=== PATIENT | male | born 1990 | race Two or more races ===

== ENCOUNTER 2017-02-16 08:31 | Emergency (ER) | payer MEDICAID, OTHER ==
[~2017-02-16] VITALS: Ht 182.9 cm; Wt 104.3 kg
[2017-02-16 08:34] VITALS: BP 174/98
[2017-02-16] MEDS ORDERED: IBUPROFEN 800 MG TAB PO ONE ×2 (09:42→09:45)
== END 2017-02-16 09:45 | disposition home or self-care (01) ==
LOC: ER 08:31
DX: S93.602A Unspecified sprain of left foot, initial encounter (principal); F17.210 Nicotine dependence, cigarettes, uncomplicated; W17.89XA Other fall from one level to another, initial encounter; Y93.39 Activity, other involving climbing, rappelling and jumping off; Y99.8 Other external cause status; Y92.89 Other specified places as the place of occurrence of the external cause
CPT/HCPCS: 73630

== ENCOUNTER 2017-03-02 17:54 | Emergency (ER) | payer MEDICAID ==
[~2017-03-02] VITALS: Ht 182.9 cm; Wt 90.7 kg
[2017-03-02 18:43] VITALS: BP 152/2
== END 2017-03-02 19:47 | disposition home or self-care (01) ==
LOC: ER 17:56
DX: M79.672 Pain in left foot (principal)

== ENCOUNTER 2017-11-10 21:58 | Emergency (ER) | payer MEDICAID ==
[~2017-11-10] VITALS: Ht 182.9 cm; Wt 113.4 kg
[2017-11-10 23:12] VITALS: BP 140/80
== END 2017-11-11 00:13 | disposition home or self-care (01) ==
LOC: ER 21:58
DX: S00.03XA Contusion of scalp, initial encounter (principal); M25.561 Pain in right knee; M62.838 Other muscle spasm; V43.52XA Car driver injured in collision with other type car in traffic accident, initial encounter; Y93.89 Activity, other specified; Y92.410 Unspecified street and highway as the place of occurrence of the external cause; Y99.8 Other external cause status
CPT/HCPCS: 70450; 73562

== ENCOUNTER → 2019-10-22 | Emergency (ER) | payer MEDICAID, OTHER ==
[~2019-10-22] VITALS: Ht 182.9 cm; Wt 92.8 kg
[2019-10-22 13:37] VITALS: BP 134/84
== END | disposition home or self-care (01) ==
LOC: ER 13:18
DX: S31.135A Puncture wound of abdominal wall without foreign body, periumbilic region without penetration into peritoneal cavity, initial encounter (principal); X58.XXXA Exposure to other specified factors, initial encounter; Y93.89 Activity, other specified; Y92.89 Other specified places as the place of occurrence of the external cause; Y99.8 Other external cause status
CPT/HCPCS: 74176

== ENCOUNTER 2022-03-18 03:30 | Emergency (ER) | payer OTHER ==
[~2022-03-18] VITALS: Ht 182.9 cm; Wt 90.0 kg
[2022-03-18] MEDS ORDERED: NALOXONE HCL 0.4 MG/ML VIAL ONE ×2 (03:45→03:58)
[2022-03-18] MEDS ORDERED: NALOXONE HCL 1MG/ML 2ML SYRINGE IV ONE ×2 (04:00→04:30)
[2022-03-18] MEDS ORDERED: ONDANSETRON HCL 4 MG/2 ML VIAL IV ONE (04:00)
[2022-03-18 04:36] LABS: Basophils # (auto) 0.1 10 ^3/uL (0-0.2); Basophils % (auto) 0.3 % (0.0-2.0); Eosinophils # (auto) 0.2 10 ^3/uL (0-0.8); Eosinophils % (auto) 1.1 % (0.0-7.0); Hematocrit 44.8 % (41.0-53.0); Lymphocytes % (auto) 12.8 % (10.0-50.0); Mean Corpuscular Hemoglobin 29.9 pg (28.0-32.0); Mean Corpuscular Hgb Conc. 33.5 g/dL (32.0-36.0); Mean Corpuscular Volume 89.3 fL (80.0-100.0); Monocytes % (auto) 6.3 % (0.0-12.0); Neutrophils # (auto) 12.3 10 ^3/uL (1.6-8.6); Neutrophils % (auto) 79.5 % (37.0-80.0); Nucleated Red Blood Cells % 0.1 %; Red Blood Cells 5.02 10^6/uL (4.5-5.90); Red Cell Distribution Width 13.5 % (11.8-14.3); White Blood Cell 15.5 10^3/uL (4.4-10.8)
[2022-03-18 04:50] LABS: Chloride 106 mmol/L (98-107); Potassium 3.6 mmol/L (3.5-5.1); Sodium 143 mmol/L (136-145)
[2022-03-18 05:01] LABS: Alanine Aminotransferase 145 U/L (16-61); Albumin 4.1 g/dL (3.4-5.0); Alkaline Phosphatase 82 U/L (45-117); Anion Gap 6 (5-15); Aspartate Aminotransferase 212 U/L (15-37); BUN/Creatinine Ratio 12.7; Bilirubin, Total 0.4 mg/dL (0.2-1.0); Blood Alcohol < 3.0 mg/dL (0-5); Blood Urea Nitrogen 14 mg/dL (7-18); Calcium 8.9 mg/dL (8.5-10.1); Carbon Dioxide 31 mmol/L (21-32); GFR African American 101 mL/min; GFR Non-African American 84 mL/min; Glucose 97 mg/dL (74-106); Total Protein 7.5 g/dL (6.4-8.2)
[2022-03-18 06:20] VITALS: BP 130/87
== END 2022-03-18 06:12 | disposition home or self-care (01) ==
LOC: EDBD 03:30 → ER 03:32
DX: T40.2X1A Poisoning by other opioids, accidental (unintentional), initial encounter (principal); F17.210 Nicotine dependence, cigarettes, uncomplicated; F12.10 Cannabis abuse, uncomplicated; Z90.49 Acquired absence of other specified parts of digestive tract; Y92.89 Other specified places as the place of occurrence of the external cause
CPT/HCPCS: 36415; 80053; 80320; 85025; 93005; 96374; 96375; 99284; J2310; J2405

== ENCOUNTER 2024-07-17 03:13 | Emergency (ER) | payer OTHER ==
[~2024-07-17] VITALS: Ht 190.5 cm; Wt 90.7 kg
[~2024-07-17 03:13] MED LIST: ZOFR4T PO
[2024-07-17 03:22] VITALS: BP 165/70; PULSE 92; RESP 16; O2SAT 95
--- NOTE | 2024-07-17 03:44 | ED.PDOC ---
History of Present Illness HPI Comments 34 year old male brought in by EMS presents to the ED with a chief complaint of overdose onset today. Per EMS, patient was found on the ground, O2 sat was 70%, patient was bagged for a few minutes, 2 mg Narcan IM was given, 2 mg Narcan IV. Patient is currently A&O x4. He states he smoked Fentanyl a few hours ago. Patient denies any PMHx. No other symptoms or modifying factors present at this time. Chief Complaint: Overdose Time Seen by MD: 03:23 Reviewed Notes: Medications, Allergies Allergies: Coded Allergies: NO KNOWN ALLERGIES (Unverified , 07/17/24) Information Source: Patient, Emergency Med Personnel Mode of Arrival: EMS Severity: Moderate Timing: Hours Duration: Since onset Prehospital treatment: Other (Narcan) Vital Signs Vital Signs Date Time Temp Pulse Resp B/P (MAP) Pulse Ox O2 Delivery O2 Flow Rate FiO2 07/17/24 03:22 97.8 92 16 165/70 (101) 95 Physical Exam General: Patient is sleeping, easily aroused. Appears disheveled Skin: Skin in warm, dry and intact. Appropriate color for ethnicity. HEENT: The head is normocephalic and atraumatic. Conjunctivae injected bilaterally. Sclera is non-icteric. EOM are intact. No signs of nystagmus. Eyelids are normal in appearance without swelling or lesions. Oral mucosa is pink and moist Neck: The neck is supple with normal range of motion. No JVD. Cardiac: Heart rate and rhythm are normal. No murmurs, gallops, or rubs are auscultated. Respiratory: No signs of respiratory distress. Lung sounds are clear in all lobes bilaterally without rales, ronchi, or wheezes. Abdominal: Abdomen is soft, non-tender without distention. Bowel sounds are present and normoactive in all four quadrants. Extremities: Upper and lower extremities are atraumatic in appearance without deformity or edema. Neurological: The patient is awake, alert and oriented to person, place, and time with normal speech. Speech is clear. There is no facial asymmetry. He is moving all extremities spontaneously and following commands. Psychiatric: Withdrawn affect Review of Systems: REVIEW OF SYSTEMS: No fever, no chills, or fatigue HEENT: No sore throat, no earache, no congestion, no neck pain. Cardiac: No chest pain. No palpitations. Lungs: No shortness of breath, no cough. GI: No nausea, no vomiting, no diarrhea, no constipation, no abdominal pain : No dysuria, frequency, or urgency. No hematuria. Musculoskeletal: No joint pain , no joint swelling, no extremity edema. Skin: No rash, no itching. Neuro: No headache, no dizziness, no weakness Past Medical History PAST MEDICAL HISTORY: Unknown Surgical History: Unobtainable Family History Family History: Unknown Social History Smoker: Unknown Alcohol: Unknown Drugs: Other Lives In: Homeless Was a procedure done? Was a procedure done?: No Differential Dx Considerations may include: Continued opiate overdose, respiratory distress, respiratory arrest, pulmonary edema, acute coronary syndrome, other X-Ray, Labs, Meds, VS Vital Signs Date Time Temp Pulse Resp B/P (MAP) Pulse Ox O2 Delivery O2 Flow Rate FiO2 07/17/24 03:22 97.8 92 16 165/70 (101) 95 07/17/24 03:19 88 Lab Test 07/17/24 04:21 Range/Units White Blood Count 12.7 H 4.4-10.8 10^3/uL Red Blood Count 4.99 4.5-5.90 10^6/uL Hemoglobin 14.9 13.5-17.5 g/dL Hematocrit 44.4 41.0-53.0 % Mean Corpuscular Volume 88.9 80.0-100.0 fL Mean Corpuscular Hemoglobin 29.8 28.0-32.0 pg Mean Corpuscular Hemoglobin Concent 33.5 32.0-36.0 g/dL Red Cell Distribution Width 12.8 11.8-14.3 % Platelet Count 296 140-450 10^3/uL Mean Platelet Volume 6.8 L 6.9-10.8 fL Neutrophils (%) (Auto) 76.3 37.0-80.0 % Lymphocytes (%) (Auto) 13.9 10.0-50.0 % Monocytes (%) (Auto) 7.1 0.0-12.0 % Eosinophils (%) (Auto) 2.4 0.0-7.0 % Basophils (%) (Auto) 0.3 0.0-2.0 % Neutrophils # (Auto) 9.7 H 1.6-8.6 10 ^3/uL Lymphocytes # (Auto) 1.8 0.4-5.4 10 ^3/uL Monocytes # (Auto) 0.9 0-1.3 10 ^3/uL Eosinophils # (Auto) 0.3 0-0.8 10 ^3/uL Basophils # (Auto) 0 0-0.2 10 ^3/uL Nucleated Red Blood Cells 0.0 % Sodium Level 140 136-145 mmol/L Potassium Level 4.1 3.5-5.1 mmol/L Chloride Level 105 98-107 mmol/L Carbon Dioxide Level 28 20-31 mmol/L Anion Gap 7 5-15 Blood Urea Nitrogen 17 9-23 mg/dL Creatinine 1.07 0.700-1.30 mg/dL Glomerular Filtration Rate Calc 94 >90 mL/min BUN/Creatinine Ratio 15.9 10.0-20.0 Serum Glucose 84 74-106 mg/dL Calcium Level 10.0 8.7-10.4 mg/dL Total Bilirubin 0.3 0.2-1.0 mg/dL Aspartate Amino Transferase (AST) 72 H 13-40 U/L Alanine Aminotransferase (ALT) 45 H 7-40 U/L Alkaline Phosphatase 84 46-116 U/L Troponin I High Sensitivity 5 </=54 ng/L Total Protein 7.5 5.7-8.2 g/dL Albumin 4.7 3.2-4.8 g/dL Plasma/Serum Blood Alcohol 7.2 <10 mg/dL Time of 1ST Reevaluation: 03:53 Reevaluation 1ST: Unchanged Patient Education/Counseling: Diagnosis, Treatment, Prognosis Family Education/Counseling: No Family Present Additional Information The following tests were ordered, and results were reviewed by me: EKG, CBC, CMP, DRUG SCREEN, UA, XY CHEST, BLOOD ALCOHOL, TROP Additional Information was gathered from interviewing the following independent historians: EMS I reviewed and agreed with the following test results read by other providers: XY CHEST I discussed treatment and results with medical personnel and patient Departure 1 Departure Time of Disposition: 05:26 Impression: Primary Impression: Opiate overdose Additional Impression: Left against medical advice Disposition: 07 LEFT AGAINST MEDICAL ADVICE Condition: Stable Comments 34-year-old male presents to the emergency department after opiate overdose. Was given Narcan by EMS. He was awake, alert, oriented on arrival to the [facility]. Recommended continued ED observation. No respiratory distress Despite our efforts, patient has decided to leave against medical advice. The patient has a normal mental status and full decisional capacity. Patient has been informed of the benefits of staying such as further diagnosis and treatment of possible serious etiology of the symptoms, and the risks of leaving such as , chronic pain, permanent disability or other serious adverse events which might be attributed to leaving. The patient displays clear understanding of these benefits and risks and chooses to leave. The patient is been informed also that they may return here at any time if they change their mind or need to further concerns or questions has been referred to their local medical physician for follow up NOHEMY. Critical Care Note Critical Care Time?: No Stability Stability form required: No I personally scribed for LIN CASILLAS MD ([email or web address]) on 07/17/24 at 03:44. Electronically submitted by Petrona Garcia ([email or web address]). I personally scribed for LIN CASILLAS MD ([email or web address]) on 07/17/24 at 03:44. Electronically submitted by Petrona Garcia ([email or web address]). I personally scribed for LIN CASILLAS MD ([email or web address]) on 07/17/24 at 04:17. Electronically submitted by Petrona Garcia ([email or web address]). LIN CASILLAS MD Jul 17, 2024 03:44
[2024-07-17] MEDS ORDERED: NALOXONE HCL 0.4 MG/ML VIAL IV ONE (04:00)
[2024-07-17 04:50] LABS: Albumin 4.7 g/dL (3.2-4.8); Alkaline Phosphatase 84 U/L (46-116); Anion Gap 7 (5-15); BUN/Creatinine Ratio 15.9 (10.0-20.0); Blood Alcohol 7.2 mg/dL (<10); Blood Urea Nitrogen 17 mg/dL (9-23); Carbon Dioxide 28 mmol/L (20-31); Chloride 105 mmol/L (98-107); Glucose 84 mg/dL (74-106); Potassium 4.1 mmol/L (3.5-5.1); Sodium 140 mmol/L (136-145)
[2024-07-17 04:51] LABS: Bilirubin, Total 0.3 mg/dL (0.2-1.0); Total Protein 7.5 g/dL (5.7-8.2)
[2024-07-17 04:56] LABS: Basophils # (auto) 0 10 ^3/uL (0-0.2); Basophils % (auto) 0.3 % (0.0-2.0); Eosinophils # (auto) 0.3 10 ^3/uL (0-0.8); Eosinophils % (auto) 2.4 % (0.0-7.0); Hematocrit 44.4 % (41.0-53.0); Hemoglobin 14.9 g/dL (13.5-17.5); Lymphocytes # (auto) 1.8 10 ^3/uL (0.4-5.4); Lymphocytes % (auto) 13.9 % (10.0-50.0); Mean Corpuscular Hemoglobin 29.8 pg (28.0-32.0); Mean Corpuscular Hgb Conc. 33.5 g/dL (32.0-36.0); Mean Corpuscular Volume 88.9 fL (80.0-100.0); Monocytes # (auto) 0.9 10 ^3/uL (0-1.3); Monocytes % (auto) 7.1 % (0.0-12.0); Neutrophils # (auto) 9.7 10 ^3/uL (1.6-8.6); Neutrophils % (auto) 76.3 % (37.0-80.0); Platelet Count (auto) 296 10^3/uL (140-450); Red Blood Cells 4.99 10^6/uL (4.5-5.90); Red Cell Distribution Width 12.8 % (11.8-14.3); White Blood Cell 12.7 10^3/uL (4.4-10.8)
[2024-07-17 05:02] LABS: Alanine Aminotransferase 45 U/L (7-40); Aspartate Aminotransferase 72 U/L (13-40)
--- NOTE | 2024-07-17 07:02 | ECG ---
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
== END 2024-07-17 03:50 | disposition left against medical advice (07) ==
LOC: EDUNIT# 03:13 → ER 03:13 → EDBD 03:13 → ER 03:50
DX: T40.601A Poisoning by unspecified narcotics, accidental (unintentional), initial encounter (principal); Z79.899 Other long term (current) drug therapy; Y92.89 Other specified places as the place of occurrence of the external cause
CPT/HCPCS: 36415; 80053; 80320; 84484; 85025; 93005

== ENCOUNTER 2024-10-24 21:11 | Emergency (ER) | payer OTHER ==
[~2024-10-24] VITALS: Ht 182.9 cm; Wt 113.6 kg
[2024-10-24 21:26] VITALS: BP 173/107; PULSE 105; RESP 16; TEMP 97.5; O2SAT 97
--- NOTE | 2024-10-24 21:31 | ED.PDOC ---
Altered Mental Status HPI Comments 34-year-old male who came to ER via EMS for overdose/altered level consciousness. Per EMS, patient was found lying unresponsive at the parking lot of a [employer] [address]. Upon arrival, patient agonal breathing, with pinpoint pupils. Patient was given 4 mg of Narcan which woke patient up. Patient admits to have use fentanyl. He denies being suicidal. 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 Allergies: Coded Allergies: NO KNOWN ALLERGIES (Unverified , 05/20/12) Home Meds Active Scripts Ondansetron Odt 4MG Tab (ZOFRAN PO) 4 Mg Tb, 4 MG PO Q8HP PRN for 5 Days, #15 TAB ODT TAB-DISSOLVE IN MOUTH, THEN SWALLOW Prov:OMID MOSER MD 01/27/24 Information Source: Patient, Emergency Med Personnel Mode of Arrival: EMS Severity: Unable to Care for Self Timing: Minutes Duration: Since onset Prehospital treatment: Treatment Quality: Decreased Alertness, Change in Behavior Recent: Medication/Drug Abuse History of: IV Drug Use Past Medical History PAST MEDICAL HISTORY: Unobtainable Surgical History: Unobtainable Family History Family History: Unknown Social History Smoker: Unknown Alcohol: Unknown Drugs: Other (Fentanyl) Lives In: Homeless Unable to Obtain due to: Altered Mental Status, Other (Overdose) Physical Exam General Appearance: No Apparent Distress, Normal HEENT: Normal ENT Inspection, Pharynx Normal, TMs Normal Neck: Full Range of Motion, Non-Tender, Normal, Normal Inspection Respiratory: Chest Non-Tender, Lungs Clear, No Accessory Muscle Use, No Respiratory Distress, Normal Breath Sounds Cardiovascular: No Edema, No JVD, No Murmur, No Gallop, Normal Peripheral Pulses, Regular Rate/Rhythm Breast Exam: Deferred Gastrointestinal: No Organomegaly, Non Tender, No Pulsatile Mass, Normal Bowel Sounds, Soft Genitalia: Deferred Pelvic: Deferred Rectal: Deferred Extremities: No calf tenderness, Normal capillary refill, Normal inspection, Normal range of motion, Non-tender, No pedal edema Musculoskeletal : Apperance: Normal 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 Was a procedure done?: No Differential Diagnosis (ALOC) Differential Diagnosis: Dehydration, Encephalopathy, Seizure, CVA, Drug Overdose, ETOH Intoxication X-Ray, Labs, Meds, VS Vital Signs Date Time Temp Pulse Resp B/P (MAP) Pulse Ox O2 Delivery O2 Flow Rate FiO2 10/24/24 21:26 97.5 105 16 173/107 (129) 97 97.5 Lab Test 10/24/24 21:33 10/24/24 21:24 Range/Units POC Glucose 79 70-106 mg/dl White Blood Count 10.0 4.4-10.8 10^3/uL Red Blood Count 5.24 4.5-5.90 10^6/uL Hemoglobin 15.4 13.5-17.5 g/dL Hematocrit 46.5 41.0-53.0 % Mean Corpuscular Volume 88.9 80.0-100.0 fL Mean Corpuscular Hemoglobin 29.4 28.0-32.0 pg Mean Corpuscular Hemoglobin Concent 33.1 32.0-36.0 g/dL Red Cell Distribution Width 13.6 11.8-14.3 % Platelet Count 326 140-450 10^3/uL Mean Platelet Volume 6.6 L 6.9-10.8 fL Neutrophils (%) (Auto) 63.5 37.0-80.0 % Lymphocytes (%) (Auto) 24.5 10.0-50.0 % Monocytes (%) (Auto) 9.5 0.0-12.0 % Eosinophils (%) (Auto) 1.9 0.0-7.0 % Basophils (%) (Auto) 0.6 0.0-2.0 % Neutrophils # (Auto) 6.3 1.6-8.6 10 ^3/uL Lymphocytes # (Auto) 2.4 0.4-5.4 10 ^3/uL Monocytes # (Auto) 0.9 0-1.3 10 ^3/uL Eosinophils # (Auto) 0.2 0-0.8 10 ^3/uL Basophils # (Auto) 0.1 0-0.2 10 ^3/uL Nucleated Red Blood Cells 0.1 % Sodium Level 146 H 136-145 mmol/L Potassium Level 4.4 3.5-5.1 mmol/L Chloride Level 108 H 98-107 mmol/L Carbon Dioxide Level 30 20-31 mmol/L Anion Gap 8 5-15 Blood Urea Nitrogen 14 9-23 mg/dL Creatinine 1.32 H 0.700-1.30 mg/dL Glomerular Filtration Rate Calc 73 >90 mL/min BUN/Creatinine Ratio 10.6 10.0-20.0 Serum Glucose 73 L 74-106 mg/dL Calcium Level 10.0 8.7-10.4 mg/dL Total Bilirubin 0.3 0.2-1.0 mg/dL Aspartate Amino Transferase (AST) 28 13-40 U/L Alanine Aminotransferase (ALT) 30 7-40 U/L Alkaline Phosphatase 82 46-116 U/L Total Protein 7.6 5.7-8.2 g/dL Albumin 4.7 3.2-4.8 g/dL Salicylates Level < 3.0 -30 mg/dL Acetaminophen Level < 2.0 L 10.0-20.0 UG/ML Plasma/Serum Blood Alcohol < 3.0 <10 mg/dL Time of 1ST Reevaluation: 21:23 Reevaluation 1ST: Unchanged Patient Education/Counseling: Diagnosis, Treatment Family Education/Counseling: No Family Present Departure 1 Departure Time of Disposition: 22:33 Impression: Primary Impression: Opiate overdose Disposition: 01 HOME / SELF CARE / HOMELESS Condition: Stable Discharged With: Self Critical Care Note Critical Care Time?: No Stability Stability form required: No Heart Score Heart Score: Heart Score Response (Comments) Value History N/A 0 EKG N/A 0 Age N/A 0 Risk Factors N/A 0 Troponin N/A 0 Total 0 I personally scribed for ADOLFO JULIAN MD ([email or web address]) on 10/24/24 at 21:31. Electronically submitted by Sonny Tejeda (9+). I personally scribed for ADOLFO JULIAN MD ([email or web address]) on 10/24/24 at 21:41. Electronically submitted by Sonny Tejeda (9+). ADOLFO JULIAN MD October 24, 2024 21:31
[2024-10-24 21:32] LABS: Basophils # (auto) 0.1 10 ^3/uL (0-0.2); Basophils % (auto) 0.6 % (0.0-2.0); Eosinophils # (auto) 0.2 10 ^3/uL (0-0.8); Eosinophils % (auto) 1.9 % (0.0-7.0); Hematocrit 46.5 % (41.0-53.0); Hemoglobin 15.4 g/dL (13.5-17.5); Lymphocytes # (auto) 2.4 10 ^3/uL (0.4-5.4); Lymphocytes % (auto) 24.5 % (10.0-50.0); Mean Corpuscular Hemoglobin 29.4 pg (28.0-32.0); Mean Corpuscular Hgb Conc. 33.1 g/dL (32.0-36.0); Mean Corpuscular Volume 88.9 fL (80.0-100.0); Monocytes # (auto) 0.9 10 ^3/uL (0-1.3); Monocytes % (auto) 9.5 % (0.0-12.0); Neutrophils # (auto) 6.3 10 ^3/uL (1.6-8.6); Neutrophils % (auto) 63.5 % (37.0-80.0); Nucleated Red Blood Cells % 0.1 %; Platelet Count (auto) 326 10^3/uL (140-450); Red Blood Cells 5.24 10^6/uL (4.5-5.90); Red Cell Distribution Width 13.6 % (11.8-14.3)
[2024-10-24 21:49] LABS: Alanine Aminotransferase 30 U/L (7-40); Albumin 4.7 g/dL (3.2-4.8); Alkaline Phosphatase 82 U/L (46-116); Anion Gap 8 (5-15); Aspartate Aminotransferase 28 U/L (13-40); BUN/Creatinine Ratio 10.6 (10.0-20.0); Bilirubin, Total 0.3 mg/dL (0.2-1.0); Blood Urea Nitrogen 14 mg/dL (9-23); Carbon Dioxide 30 mmol/L (20-31); Potassium 4.4 mmol/L (3.5-5.1); Total Protein 7.6 g/dL (5.7-8.2)
[2024-10-24 21:50] LABS: Blood Alcohol < 3.0 mg/dL (<10); Chloride 108 mmol/L (98-107); Glucose 73 mg/dL (74-106); Sodium 146 mmol/L (136-145)
[2024-10-24 21:51] LABS: Acetaminophen < 2.0 UG/ML (10.0-20.0); Salicylate < 3.0 mg/dL (-30)
== END 2024-10-24 23:32 | disposition home or self-care (01) ==
LOC: EDUNIT# 21:11 → EDBD 21:11 → ER 21:16
DX: T40.411A Poisoning by fentanyl or fentanyl analogs, accidental (unintentional), initial encounter (principal); Z79.899 Other long term (current) drug therapy; Z59.00 Homelessness unspecified; Y92.481 Parking lot as the place of occurrence of the external cause
CPT/HCPCS: 36415; 80053; 80320; 80329; 82947; 82962; 85025

== ENCOUNTER 2024-11-30 23:55 | Inpatient (IN) | payer OTHER ==
[~2024-11-30] VITALS: Ht 182.9 cm; Wt 84.4 kg
[2024-12-01] MEDS: ONDANSETRON HCL 4 MG/2 ML VIAL IM ONE (01:55)
[2024-12-01] MEDS: KETOROLAC TROMETH 30 MG/ML 1ML VIAL IM ONE (01:55)
--- NOTE | 2024-12-01 02:11 | DVH ---
Exam: CT CT AB PEL WO CON-NO ORAL OR IV History: ABDOMINAL PAIN, NAUSEA, VOMITING Comparison Study: None Technique: Multidetector spiral CT of the abdomen was performed from lung bases to pubic symphysis. I maging was performed without IV contrast. Axial, coronal and sagittal multiplanar reformats were obta ined from the axial data set by the technologist. Radiation Dose : 1. Abdomen/Pelvis: CTDIvol 15.48 mGy, DLP 903.73 mGy*cm. Findings: Evaluation of solid organs is limited due to lack of intravenous contrast use. Lung Bases: No acute or significant lung base finding. Normal heart size. No pleural or pericardial effusion. Liver: The liver is normal in size. No focal lesions. Gallbladder and Biliary Tree: Status post cholecystectomy. Spleen: Unremarkable Pancreas: The pancreas is grossly normal in appearance. Adrenal Glands: Unremarkable Kidneys: Kidneys are grossly normal without calculi or hydronephrosis. Bladder: Grossly unremarkable for degree of distention. Bowel: The stomach is distended and filled with ingested material. Multiple fluid and gas-filled dila miguelito segments of predominantly small bowel throughout the abdomen exhibiting air-fluid levels consiste nt with moderate to high-grade obstruction. Moderate retained stool within the ascending and transver se colon. The appendix is not visualized; however, no secondary findings of acute appendicitis identi fied. Ascites: Absent Lymphadenopathy: No mesenteric, retroperitoneal or periportal lymphadenopathy. Abdominal Wall and Mesentery: Unremarkable. Vasculature: The visualized abdominal aorta is normal in size and caliber. Evaluation of abdominal a nd pelvic vessels is limited due to lack of intravenous contrast. Pelvic Organs: Unremarkable Musculoskeletal: No aggressive focal bony lesions, acute fractures or dislocation. IMPRESSION: 1. Moderate to high-grade bowel obstruction with air-fluid levels and dilated small bowel as well as retained stool throughout the proximal colon. Radiation optimization: All CT scans at this facility use at least one of these dose optimization miguel hniques: automated exposure control mA and/or kV adjustment per patient size (includes targeted exam s where dose is matched to clinical indication) or iterative reconstruction.
[2024-12-01 02:18] LABS: Basophils # (auto) 0 10 ^3/uL (0-0.2); Basophils % (auto) 0.1 % (0.0-2.0); Eosinophils # (auto) 0.2 10 ^3/uL (0-0.8); Eosinophils % (auto) 2.2 % (0.0-7.0); Hematocrit 50.1 % (41.0-53.0); Hemoglobin 16.9 g/dL (13.5-17.5); Lymphocytes # (auto) 0.9 10 ^3/uL (0.4-5.4); Lymphocytes % (auto) 8.6 % (10.0-50.0); Mean Corpuscular Hemoglobin 29.6 pg (28.0-32.0); Mean Corpuscular Hgb Conc. 33.7 g/dL (32.0-36.0); Mean Corpuscular Volume 87.7 fL (80.0-100.0); Monocytes # (auto) 0.7 10 ^3/uL (0-1.3); Monocytes % (auto) 6.8 % (0.0-12.0); Neutrophils % (auto) 82.3 % (37.0-80.0); Nucleated Red Blood Cells % 0.1 %; Platelet Count (auto) 286 10^3/uL (140-450); Red Blood Cells 5.72 10^6/uL (4.5-5.90); Red Cell Distribution Width 13.2 % (11.8-14.3); White Blood Cell 10.9 10^3/uL (4.4-10.8)
[2024-12-01 02:48] LABS: Alanine Aminotransferase 29 U/L (7-40); Alkaline Phosphatase 81 U/L (46-116); Anion Gap 11 (5-15); BUN/Creatinine Ratio 14.9 (10.0-20.0); Bilirubin, Total 0.5 mg/dL (0.2-1.0); Blood Urea Nitrogen 13 mg/dL (9-23); Calcium 10.1 mg/dL (8.7-10.4); Carbon Dioxide 27 mmol/L (20-31); Chloride 103 mmol/L (98-107); Glucose 88 mg/dL (74-106); Lactic Acid w/Reflex 2.1 mmol/L (0.4-2.0); Lipase 49 U/L (12-53); Sodium 141 mmol/L (136-145)
[2024-12-01 02:49] LABS: Albumin 5.1 g/dL (3.2-4.8); Aspartate Aminotransferase 35 U/L (<34); Potassium 3.5 mmol/L (3.5-5.1); Total Protein 8.3 g/dL (5.7-8.2)
--- NOTE | 2024-12-01 02:52 | ED.PDOC ---
GI ASSESSMENT HPI Comments 34-year-old male, with reported history of cholecystectomy, is brought in by ambulance for 1 day history of nonradiating, lower abdominal pain with associated nausea and vomiting. Patient is a poor historian. He reports onset of symptoms, last night. No recent alcohol or substance use, spoiled food intake, or significant gastrointestinal history endorsed. Patient denies having any bloody or bilious vomitus, diarrhea, constipation, urinary symptoms, fever, chills, further associated symptoms at this time. Chief Complaint: Nausea/Vomiting Time Seen by MD: 00:53 Primary Care Provider: NONE Reviewed Notes: Nurses Notes, Call Specialist Notes, Medications, Allergies Allergies: Coded Allergies: NO KNOWN ALLERGIES (Unverified , 05/20/12) Home Meds Active Scripts Ondansetron Odt 4MG Tab (ZOFRAN PO) 4 Mg Tb, 4 MG PO Q8HP PRN for 5 Days, #15 TAB ODT TAB-DISSOLVE IN MOUTH, THEN SWALLOW Prov:OMID MOSER MD 01/27/24 Information Source: Patient, Emergency Med Personnel Mode of Arrival: EMS Timing: Hours Duration: Since onset Prehospital treatment: 12 Lead EKG, Accucheck, Program Development Specialist Severity: Moderate Review of Systems: REVIEW OF SYSTEMS: No fever, no chills, or fatigue HEENT: No sore throat, no earache, no congestion, no neck pain. Cardiac: No chest pain. No palpitations. Lungs: No shortness of breath, no cough. GI: Abdominal pain, nausea, vomiting, no diarrhea, no constipation : No dysuria, frequency, or urgency. No hematuria. Musculoskeletal: No joint pain , no joint swelling, no extremity edema. Skin: No rash, no itching. Neuro: No headache, no dizziness, no weakness Vital Signs Vital Signs Date Time Temp Pulse Resp B/P (MAP) Pulse Ox O2 Delivery O2 Flow Rate FiO2 12/01/24 03:54 99.0 60 16 163/104 (123) 98 99.0 12/01/24 01:45 Room Air* 0 21 Physical Exam General: Awake, Patient is actively a repeatedly vomiting, Skin: Skin in warm, dry and intact without rashes or lesions. HEENT: The head is normocephalic and atraumatic. Conjunctivae are clear without exudates or hemorrhage. Sclera is non-icteric. Neck: Normal range of motion. No JVD. Cardiac: Regular rate Respiratory: No signs of respiratory distress. No Stridor. Gastrointestinal: Actively vomiting, no tenderness Extremities: Upper and lower extremities are atraumatic in appearance without deformity. Neurological: The patient is awake, appears intoxicated Psychiatric: Patient is withdrawn, not answering all questions. Past Medical History PAST MEDICAL HISTORY: Denies Surgical History: Cholecystectomy Family History Family History: Unknown Social History Smoker: Non-Smoker Alcohol: Denies ETOH Use Drugs: Other (Opiate use) Lives In: Homeless Was a procedure done? Was a procedure done?: No GI differential Dx Differential Diagnosis: Gastritis/PUD Other Differential Diagnosis Differential diagnoses considered include: Abdominal aortic aneurysm, CT, esophageal rupture, intestinal obstruction, mesenteric ischemia, perforated viscus or solid organ rupture, CHF with hepatomegaly, pneumonia, abscess, appendicitis, biliary disease, diverticulitis, gastritis, gastroenteritis, hepatitis, hernia, inflammatory bowel disease, pancreatitis, peptic ulcer disease, urinary tract infection, ureteral colic, constipation, GERD, irritable syndrome, abdominal wall pain, nonspecific abdominal pain, herpes zoster, nephrolithiasis. X-Ray, Labs, Meds, VS Vital Signs Date Time Temp Pulse Resp B/P (MAP) Pulse Ox O2 Delivery O2 Flow Rate FiO2 12/01/24 03:54 99.0 60 16 163/104 (123) 98 99.0 12/01/24 01:45 Room Air* 0 21 12/01/24 01:45 98.0 88 18 144/72 (96) 99 98.0 12/01/24 00:01 99.0 73 18 163/101 (121) 95 99.0 Lab Test 12/01/24 03:41 12/01/24 01:41 Range/Units Lactic Acid Level 1.6 2.1 *H 0.4-2.0 mmol/L White Blood Count 10.9 H 4.4-10.8 10^3/uL Red Blood Count 5.72 4.5-5.90 10^6/uL Hemoglobin 16.9 13.5-17.5 g/dL Hematocrit 50.1 41.0-53.0 % Mean Corpuscular Volume 87.7 80.0-100.0 fL Mean Corpuscular Hemoglobin 29.6 28.0-32.0 pg Mean Corpuscular Hemoglobin Concent 33.7 32.0-36.0 g/dL Red Cell Distribution Width 13.2 11.8-14.3 % Platelet Count 286 140-450 10^3/uL Mean Platelet Volume 7.2 6.9-10.8 fL Neutrophils (%) (Auto) 82.3 H 37.0-80.0 % Lymphocytes (%) (Auto) 8.6 L 10.0-50.0 % Monocytes (%) (Auto) 6.8 0.0-12.0 % Eosinophils (%) (Auto) 2.2 0.0-7.0 % Basophils (%) (Auto) 0.1 0.0-2.0 % Neutrophils # (Auto) 9.0 H 1.6-8.6 10 ^3/uL Lymphocytes # (Auto) 0.9 0.4-5.4 10 ^3/uL Monocytes # (Auto) 0.7 0-1.3 10 ^3/uL Eosinophils # (Auto) 0.2 0-0.8 10 ^3/uL Basophils # (Auto) 0 0-0.2 10 ^3/uL Nucleated Red Blood Cells 0.1 % Sodium Level 141 136-145 mmol/L Potassium Level 3.5 3.5-5.1 mmol/L Chloride Level 103 98-107 mmol/L Carbon Dioxide Level 27 20-31 mmol/L Anion Gap 11 5-15 Blood Urea Nitrogen 13 9-23 mg/dL Creatinine 0.87 0.700-1.30 mg/dL Glomerular Filtration Rate Calc 117 >90 mL/min BUN/Creatinine Ratio 14.9 10.0-20.0 Serum Glucose 88 74-106 mg/dL Calcium Level 10.1 8.7-10.4 mg/dL Total Bilirubin 0.5 0.2-1.0 mg/dL Aspartate Amino Transferase (AST) 35 H <34 U/L Alanine Aminotransferase (ALT) 29 7-40 U/L Alkaline Phosphatase 81 46-116 U/L Total Protein 8.3 H 5.7-8.2 g/dL Albumin 5.1 H 3.2-4.8 g/dL Lipase 49 12-53 U/L Current Medications Medications (Trade) Dose Ordered Sig/Nicho Route Start Time Stop Time Status Last Admin Ondansetron HCl (Zofran) 4 mg ONCE ONCE IM 12/01/24 01:30 12/01/24 01:31 DC 12/01/24 01:55 Ketorolac Tromethamine (Toradol Injection) 45 mg ONCE ONCE IM 12/01/24 01:30 12/01/24 01:31 DC 12/01/24 01:[address] [address] Ph: [phone] DIAGNOSTIC IMAGING Diagnostic Imaging Report : [id number] Signed PATIENT: MARGARITA SOLANO III ACCT: [id number] UNIT: [id number] : 1990 LOC: ER ROOM / BED: / AGE / SEX: 34 / M ADM STATUS: REG ER SERVICE 0117 ORDERING PHYSICIAN: LIN CASILLAS MD PROCEDURE(s): ABPL - CT AB PEL WO CON-NO ORAL OR IV REASON: ABDOMINAL PAIN, NAUSEA, VOMITING ORDER NUMBER(s): [id number], ACCESSION NUMBER(s): [id number] Exam: CT CT AB PEL WO CON-NO ORAL OR IV History: ABDOMINAL PAIN, NAUSEA, VOMITING Comparison Study: None Technique: Multidetector spiral CT of the abdomen was performed from lung bases to pubic symphysis. Imaging was performed without IV contrast. Axial, coronal and sagittal multiplanar reformats were obtained from the axial data set by the technologist. Radiation Dose : 1. Abdomen/Pelvis: CTDIvol 15.48 mGy, DLP 903.73 mGy*cm. Findings: Evaluation of solid organs is limited due to lack of intravenous contrast use. Lung Bases: No acute or significant lung base finding. Normal heart size. No pleural or pericardial effusion. Liver: The liver is normal in size. No focal lesions. Gallbladder and Biliary Tree: Status post cholecystectomy. Spleen: Unremarkable Pancreas: The pancreas is grossly normal in appearance. Adrenal Glands: Unremarkable Kidneys: Kidneys are grossly normal without calculi or hydronephrosis. Bladder: Grossly unremarkable for degree of distention. Bowel: The stomach is distended and filled with ingested material. Multiple fluid and gas-filled dilated segments of predominantly small bowel throughout the abdomen exhibiting air-fluid levels consistent with moderate to high-grade obstruction. Moderate retained stool within the ascending and transverse colon. The appendix is not visualized; however, no secondary findings of acute appendicitis identified. Ascites: Absent Lymphadenopathy: No mesenteric, retroperitoneal or periportal lymphadenopathy. Abdominal Wall and Mesentery: Unremarkable. Vasculature: The visualized abdominal aorta is normal in size and caliber. Evaluation of abdominal and pelvic vessels is limited due to lack of intravenous contrast. Pelvic Organs: Unremarkable Musculoskeletal: No aggressive focal bony lesions, acute fractures or dislocation. IMPRESSION: 1. Moderate to high-grade bowel obstruction with air-fluid levels and dilated small bowel as well as retained stool throughout the proximal colon. Radiation optimization: All CT scans at this facility use at least one of these dose optimization techniques: automated exposure control mA and/or kV adjustment per patient size (includes targeted exams where dose is matched to clinical indication) or iterative reconstruction. ATED BY: JHOAN CARRERO MD DICTATED DATE/TIME: 12/01/24207 SIGNED BY: JHOAN CARRERO MD SIGNED DATE/TIME: 12/01/24207 CC: Time of 1ST Reevaluation: 05:02 Reevaluation 1ST: Unchanged Patient Education/Counseling: Treatment, Other (Need for admission) Family Education/Counseling: No Family Present SEPSIS Sepsis Screen Date sepsis recognized/suspect: Dec 01, 2024 Time Sepsis recognized/suspect: 0002 Recent Procedure: No On Antibiotic Therapy: No Respiratory Rate >20: No Heart Rate >90: No Temp<36 C (96.8 F) or >38.3 C: No SBP <90 or MAP <65 mmHG: No New Acute Mental Status Change: No Is the patient on CPAP, BIPAP,: No Physician Orders Urinalysis (12/01/24 01:16) Ct Ab Pel Wo Con-No Oral Or Iv (12/01/24 01:17) Ng/Orogastric Tube To Lis (12/01/24 02:51) Vital Signs Date Time Temp Pulse Resp B/P (MAP) Pulse Ox O2 Delivery O2 Flow Rate FiO2 12/01/24 03:54 99.0 60 16 163/104 (123) 98 99.0 12/01/24 01:45 Room Air* 0 21 12/01/24 01:45 98.0 88 18 144/72 (96) 99 98.0 12/01/24 00:01 99.0 73 18 163/101 (121) 95 99.0 Laboratory Tests Test 12/01/24 01:41 12/01/24 03:41 Lactic Acid Level 2.1 mmol/L (0.4-2.0) *H 1.6 mmol/L (0.4-2.0) White Blood Count 10.9 10^3/uL (4.4-10.8) H Medications Medications Dose Ordered Sig/Nicho Route Start Time Stop Time Status Last Admin Dose Admin Ketorolac Tromethamine 45 mg ONCE ONCE IM 12/01/24 01:30 12/01/24 01:31 DC 12/01/24 01:55 Ondansetron HCl 4 mg ONCE ONCE IM 12/01/24 01:30 12/01/24 01:31 DC 12/01/24 01:55 Departure 1 Departure Time of Disposition: 02:51 Impression: Primary Impression: Small bowel obstruction Disposition: ADMITTED INPATIENT Condition: Stable Comments Patient admitted to hospitalist service for further treatment, evaluation and monitoring. Extensive evaluation was performed in attempt to identify or rule out: (See differential diagnosis section) The following tests were ordered, and results were reviewed by me and discussed with patient: (See diagnostic results section) The following test were independently interpreted by me: N/A I reviewed and agreed with the following test results read by other providers: Abdomen and pelvis CT I reviewed the following notes from the pt's past medical encounters: July 17, 2024 and October 24, 2024 for overdose and opiate overdose, respectively Additional information was gathered from interviewing the following independent historians: EMS personnel Discussion of management or test interpretation with external physician/other qualified health healthcare translator: N/A Addressed an acute or chronic illness that poses a threat to life or bodily function: Small-bowel obstruction Decision regarding hospitalization or escalation of hospital level of care: Risk and benefits of admission for further treatment of patient's condition was considered. Due to patient's current clinical condition, high risk of decline and poor outcome if discharged and need for further inpatient management and monitoring, patient will be admitted to the hospital. Drug therapy requiring intensive monitoring for toxicity: N/A Parenteral controlled substances: N/A Decision regarding elective major surgery with identified patient or procedure risk factors: N/A Decision regarding emergency major surgery: N/A Decision not to resuscitate or to de-escalate care because of poor prognosis: N/A Diagnosis or treatment significantly limited by social determinants of health: N/A Critical Care Note Critical Care Time?: No Stability Stability form required: No Heart Score Heart Score: Heart Score Response (Comments) Value History N/A 0 EKG N/A 0 Age N/A 0 Risk Factors N/A 0 Troponin N/A 0 Total 0 I personally scribed for LIN CASILLAS MD ([email or web address]) on 12/01/24 at 04:27. Electronically submitted by Luis Enrique Oliver ([email or web address]). I personally scribed for LIN CASILLAS MD ([email or web address]) on 12/01/24 at 04:46. Electronically submitted by Luis Enrique Oliver ([email or web address]). LIN CASILLAS MD Dec 01, 2024 02:52
[2024-12-01] MEDS ORDERED: VANCOMYCIN PER PHARMACY 0 MG IV SCH (04:15)
[2024-12-01] MEDS ORDERED: KETOROLAC TROMETH 30 MG/ML 1ML VIAL IV PRN (04:15)
--- NOTE | 2024-12-01 04:37 | DVHHPRES ---
History of Present Illness Resident Creating Document: RONNI BENTLEY RESIDENT History of Present Illness 34-year-old male with a past medical history of cholecystectomy and multiple admissions to the ER with a drug overdose presented to the ED with a chief complaint of intractable nausea/vomiting and abdominal pain. Patient reported history of sudden onset intractable nausea and multiple episodes of vomiting without any blood which started yesterday afternoon/evening according to the patient. Patient has a history of cholecystectomy done laparoscopically few years ago. At the time of examination patient was lethargic and drowsy and could not give a good history. Recently drug use yesterday. He is homeless Past medical/surgical history: Cholecystectomy Social history: Patient is homeless and has been to the ER multiple times for drug overdose, currently denied any drug use, alcohol or smoking No home medications Review of Systems Review of Systems Patient seen and examined at the bedside Lethargic, drowsy but wakes up to verbal and physical command Denies abdominal pain at present Has nausea but denied any vomitings No shortness of breath, chest pain Allergies: Coded Allergies: NO KNOWN ALLERGIES (Unverified , 05/20/12) Exam Vital Signs Vital Signs Date Time Temp Pulse Resp B/P (MAP) Pulse Ox O2 Delivery O2 Flow Rate FiO2 12/01/24 03:54 99.0 60 16 163/104 (123) 98 99.0 12/01/24 01:45 Room Air* 0 21 Exam Gen - no pallor, no icterus, no cyanosis, no clubbing, no LAD, no edema . Skin - Patients skin is warm and dry. HEENT - normocephalic, atraumatic, moist mucous membranes. Neck - full ROM, no LAD, no JVD Pulmonary - B/L equal breath sounds, no crackles, no wheezing, no stridor. cardiovascular - regular S1,S2 heard, no added sounds, no murmurs heard. GI - soft abdomen without any tenderness to palpation. no hepatospleenomegaly. Bowel sounds normoactive. Small wound with the umbilicus which is oozing yellowish fluid Neurological - Patient is A/O X 2 . Bilateral upper extremity strength 5/5, bilateral lower extremity strength 5/5, no facial droop, normal speech, no tremor, no sensory deficiets. Patient is drowsy, lethargic but awakens to verbal command. GCS 13 Labs/Xrays Labs Test 12/01/24 03:41 12/01/24 01:41 Range/Units Lactic Acid Level 1.6 0.4-2.0 mmol/L White Blood Count 10.9 H 4.4-10.8 10^3/uL Red Blood Count 5.72 4.5-5.90 10^6/uL Hemoglobin 16.9 13.5-17.5 g/dL Hematocrit 50.1 41.0-53.0 % Mean Corpuscular Volume 87.7 80.0-100.0 fL Mean Corpuscular Hemoglobin 29.6 28.0-32.0 pg Mean Corpuscular Hemoglobin Concent 33.7 32.0-36.0 g/dL Red Cell Distribution Width 13.2 11.8-14.3 % Platelet Count 286 140-450 10^3/uL Mean Platelet Volume 7.2 6.9-10.8 fL Neutrophils (%) (Auto) 82.3 H 37.0-80.0 % Lymphocytes (%) (Auto) 8.6 L 10.0-50.0 % Monocytes (%) (Auto) 6.8 0.0-12.0 % Eosinophils (%) (Auto) 2.2 0.0-7.0 % Basophils (%) (Auto) 0.1 0.0-2.0 % Neutrophils # (Auto) 9.0 H 1.6-8.6 10 ^3/uL Lymphocytes # (Auto) 0.9 0.4-5.4 10 ^3/uL Monocytes # (Auto) 0.7 0-1.3 10 ^3/uL Eosinophils # (Auto) 0.2 0-0.8 10 ^3/uL Basophils # (Auto) 0 0-0.2 10 ^3/uL Nucleated Red Blood Cells 0.1 % Sodium Level 141 136-145 mmol/L Potassium Level 3.5 3.5-5.1 mmol/L Chloride Level 103 98-107 mmol/L Carbon Dioxide Level 27 20-31 mmol/L Anion Gap 11 5-15 Blood Urea Nitrogen 13 9-23 mg/dL Creatinine 0.87 0.700-1.30 mg/dL Glomerular Filtration Rate Calc 117 >90 mL/min BUN/Creatinine Ratio 14.9 10.0-20.0 Serum Glucose 88 74-106 mg/dL Calcium Level 10.1 8.7-10.4 mg/dL Total Bilirubin 0.5 0.2-1.0 mg/dL Aspartate Amino Transferase (AST) 35 H <34 U/L Alanine Aminotransferase (ALT) 29 7-40 U/L Alkaline Phosphatase 81 46-116 U/L Total Protein 8.3 H 5.7-8.2 g/dL Albumin 5.1 H 3.2-4.8 g/dL Lipase 49 12-53 U/L Assessment/Plan Assessment/Plan Acute intractable abdominal pain Acute intractable nausea and vomiting Probable bowel obstruction Sepsis likely due to above S/p cholecystectomy few years ago - CT abdomen pelvis shows moderate to high-grade bowel obstruction with air- fluid levels and dilated small bowel as well as retained stool throughout the proximal colon - IV fluids - IV antibiotics - Zosyn - blood culture pending - surgical consult - NG tube to low intermittent suction - patient NPO Abdominal wound Possible sepsis due to the wound - IV vancomycin and Zosyn - wound culture pending PUD prophylaxis: Protonix Goals of care discussed with the patient for over 19 minutes. Full code Time spent: 38 minutes Plan discussed with Dr. Gale Plan discussed with: Patient, Other ([place]) Date of Service: Dec 01, 2024 Billing Provider: LITTLE GALE MD Common Visit Codes: 46131-[id number] INP/OBS CARE (HIGH) Secondary Visit Codes: 93981-[id number] CARE PLAN 30 MINUTES RONNI BENTLEY RESIDENT Dec 01, 2024 04:37
[2024-12-01] MEDS: PANTOPRAZOLE 40 MG/10 ML VIAL INJ IV ONE (06:08)
[2024-12-01] MEDS: ONDANSETRON HCL 4 MG/2 ML VIAL IV PRN (06:09)
[2024-12-01] MEDS: LACTATED RINGER'S 2,350 ML IV ONE (06:50)
[2024-12-01] MEDS: VANCOMYCIN 1GM/250mL NS or D5W KIT IV SCH (06:51)
[2024-12-01 08:30] LABS: INR 1.08 (0.9-1.15); Partial Thromboplastin Time 28.7 SEC (24.5-34.5); Prothrombin Time 11.4 sec (9.3-11.8)
[2024-12-01 08:37] VITALS: PULSE 58; RESP 18; O2SAT 98
[2024-12-01] MEDS: PIPERACILLIN-TAZOB 3.375GM 100 ML IV SCH (09:03)
[2024-12-01] MEDS: SODIUM CHLORIDE 0.9% 1,000 ML IV ONE ×2 (09:04→11:15)
[2024-12-01 09:24] LABS: Urine Bacteria None Seen /hpf (None Seen)
[2024-12-01 09:31] LABS: Urine Blood Negative /uL (Negative); Urine Clarity Clear (Clear); Urine Color Yellow (Yellow); Urine Mucus FEW (None Seen); Urine Protein, UAD TRACE (Negative); Urine Specific Gravity 1.029 (1.001-1.035); Urine Squamous Epithelial Cell FEW /hpf (<5); Urine Urobilinogen Normal (Negative); Urine WBC 6 /HPF (0-3); Urine pH 5.5 (5.0-9.0)
[2024-12-01 09:52] LABS: Cannabinoid Screen, Urine Pos (NEGATIVE); Phencyclidine Screen, Urine Neg (NEGATIVE)
[2024-12-01 09:55] LABS: Amphetamine Screen, Urine Pos (NEGATIVE); Barbiturate Scree,Urine Neg (NEGATIVE); Benzodiazephine Screen, Urine Neg (NEGATIVE); Cocaine Screen, Urine Neg (NEGATIVE); Opiate Scree,Urine Neg (NEGATIVE)
[2024-12-01] MEDS: cefTRIAXone 1GM/50ML D5W 50 ML IV ONE (12:35)
--- NOTE | 2024-12-01 13:17 | DVHINCON2 ---
Consultation - Surgical Date Seen: Dec 01, 2024 Referring Physician Referring Physician er Reason for Consultation abd pain History of Present Illness History of Present Illness 34-year-old male with a past medical history of cholecystectomy. presented to the ED with a chief complaint of intractable nausea/vomiting and abdominal pain. Patient reported history of sudden onset intractable nausea and multiple episodes of vomiting without any blood which started yesterday afternoon/evening according to the patient. Patient has a history of cholecystectomy done laparoscopically few years ago. At the time of examination patient was lethargic and drowsy and could not give a good history. Recently drug use yesterday. He is homeless Patient currently sleeping in [facility]. The patient denies any nausea. Patient denies any abdominal pain at this time. Past Medical/Surgical History Past Medical/Surgical History Cholecystectomy Family and Social History Family and Social History History of drug use with multiple overdoses. Allergies and medications Allergies: Coded Allergies: NO KNOWN ALLERGIES (Unverified , 05/20/12) Home Meds Active Scripts Ondansetron Odt 4MG Tab (ZOFRAN PO) 4 Mg Tb, 4 MG PO Q8HP PRN for 5 Days, #15 TAB ODT TAB-DISSOLVE IN MOUTH, THEN SWALLOW Prov:OMID MOSER MD 01/27/24 Review of systems Review of Systems: HEENT:Normal, CVS:Normal, RESPIRATORY:Normal, GI:Normal, :Normal, NEURO:Normal Examination Vital signs Vital Signs Date Time Temp Pulse Resp B/P (MAP) Pulse Ox O2 Delivery O2 Flow Rate FiO2 12/01/24 12:00 52 12/01/24 11:01 99.6 17 133/74 (93) 98 99.6 12/01/24 08:37 Room Air* 0 21 Medications Current Medications Medications (Trade) Dose Ordered Sig/Nicho Route PRN Reason Start Time Stop Time Status Last Admin Pantoprazole Sodium (Protonix) 40 mg DAILY IV 12/02/24 10:00 Ondansetron HCl (Zofran) 4 mg Q6HPRN PRN IV NAUSEA / VOMITING 12/01/24 04:15 12/01/24 06:09 Vancomycin HCl 0 ml @ 0 mls/hr UD IV 12/01/24 04:15 12/01/24 11:15 DC Piperacillin Sod/ Tazobactam Sod 100 ml @ 25 mls/hr Q8HR IV 12/01/24 06:00 12/01/24 10:20 DC 12/01/24 09:03 Ketorolac Tromethamine (Toradol Injection) 15 mg Q6HPRN PRN IV SEVERE PAIN (7-10 PAIN SCALE) 12/01/24 04:15 12/06/24 04:14 Vancomycin HCl 250 ml @ 250 mls/hr Q1H IV 12/01/24 05:00 12/01/24 06:59 DC 12/01/24 08:08 Vancomycin HCl 250 ml @ 200 mls/hr Q8HR IV 12/01/24 14:00 12/01/24 11:15 DC Piperacillin Sod/ Tazobactam Sod 100 ml @ 25 mls/hr Q8H IV 12/01/24 16:00 12/01/24 11:15 DC Metronidazole 100 ml @ 100 mls/hr Q8HR IV 12/01/24 22:00 Ceftriaxone Sodium 50 ml @ 100 mls/hr DAILY@09 IV 12/02/24 09:00 Mupirocin (Bactroban 2% Ointment) 1 applic BID TOP 12/01/24 22:00 Laboratory Labs Test 12/01/24 08:06 12/01/24 07:55 12/01/24 03:41 12/01/24 01:41 Range/Units Urine Color Yellow Yellow Urine Clarity Clear Clear Urine pH 5.5 5.0-9.0 Urine Specific [place] 1.029 1.001-1.035 Urine Protein Trace H Negative Urine Ketones Trace Negative Urine Blood Negative Negative /uL Urine Nitrite Negative Negative Urine Bilirubin Negative Negative Urine Urobilinogen Normal Negative mg/dL Urine Leukocyte Esterase Trace Negative /uL Urine RBC 3 0 - 3 /hpf Urine Microscopic WBC 6 H 0-3 /HPF Urine Squamous Epithelial Cells Few <5 /hpf Urine Bacteria None seen None Seen /hpf Urine Mucus Few None Seen Urine Glucose Normal Normal mg/dL Urine Opiates Screen Neg NEGATIVE Urine Fentanyl Screen Pos NEGATIVE Urine Barbiturates Screen Neg NEGATIVE Urine Phencyclidine Screen Neg NEGATIVE Urine Amphetamines Screen Pos NEGATIVE Urine Benzodiazepines Screen Neg NEGATIVE Urine Cocaine Screen Neg NEGATIVE Urine Cannabinoids Screen Pos NEGATIVE Prothrombin Time 11.4 9.3-11.8 sec Prothrombin Time INR 1.08 0.9-1.15 Activated Partial Thromboplast Time 28.7 24.5-34.5 SEC Plasma/Serum Blood Alcohol < 3.0 <10 mg/dL HIV (1&2) Antibody Negative Negative Lactic Acid Level 1.6 0.4-2.0 mmol/L White Blood Count 10.9 H 4.4-10.8 10^3/uL Red Blood Count 5.72 4.5-5.90 10^6/uL Hemoglobin 16.9 13.5-17.5 g/dL Hematocrit 50.1 41.0-53.0 % Mean Corpuscular Volume 87.7 80.0-100.0 fL Mean Corpuscular Hemoglobin 29.6 28.0-32.0 pg Mean Corpuscular Hemoglobin Concent 33.7 32.0-36.0 g/dL Red Cell Distribution Width 13.2 11.8-14.3 % Platelet Count 286 140-450 10^3/uL Mean Platelet Volume 7.2 6.9-10.8 fL Neutrophils (%) (Auto) 82.3 H 37.0-80.0 % Lymphocytes (%) (Auto) 8.6 L 10.0-50.0 % Monocytes (%) (Auto) 6.8 0.0-12.0 % Eosinophils (%) (Auto) 2.2 0.0-7.0 % Basophils (%) (Auto) 0.1 0.0-2.0 % Neutrophils # (Auto) 9.0 H 1.6-8.6 10 ^3/uL Lymphocytes # (Auto) 0.9 0.4-5.4 10 ^3/uL Monocytes # (Auto) 0.7 0-1.3 10 ^3/uL Eosinophils # (Auto) 0.2 0-0.8 10 ^3/uL Basophils # (Auto) 0 0-0.2 10 ^3/uL Nucleated Red Blood Cells 0.1 % Sodium Level 141 136-145 mmol/L Potassium Level 3.5 3.5-5.1 mmol/L Chloride Level 103 98-107 mmol/L Carbon Dioxide Level 27 20-31 mmol/L Anion Gap 11 5-15 Blood Urea Nitrogen 13 9-23 mg/dL Creatinine 0.87 0.700-1.30 mg/dL Glomerular Filtration Rate Calc 117 >90 mL/min BUN/Creatinine Ratio 14.9 10.0-20.0 Serum Glucose 88 74-106 mg/dL Calcium Level 10.1 8.7-10.4 mg/dL Total Bilirubin 0.5 0.2-1.0 mg/dL Aspartate Amino Transferase (AST) 35 H <34 U/L Alanine Aminotransferase (ALT) 29 7-40 U/L Alkaline Phosphatase 81 46-116 U/L Total Protein 8.3 H 5.7-8.2 g/dL Albumin 5.1 H 3.2-4.8 g/dL Lipase 49 12-53 U/L Examination: GENERAL:Normal, HEENT:Normal, NECK:Normal, LUNGS:Normal, CVS:Normal, ABDOMEN:Normal (Abdomen is currently soft nontender), MSK:Normal, SKIN:Normal, NEURO:Normal, :Normal Problem List/Assessment/Plan Problems: (1) Small bowel obstruction Assessment and Plan Patient admitted with intractable abdominal pain and nausea vomiting which is subsided. Patient's CT scan demonstrated possible small bowel obstruction. NPO, if patient remains asymptomatic would advance diet slowly. If the patient does vomit then would place NG tube. We will continue to follow Plan discussed with Plan discussed with: Patient Visit Coding Surgery Date of Service if different f: Dec 01, 2024 Billing Provider: TYRELL DELAROSA Jr., MD Surgery Visit Codes: 58335 - INP CONSULT <80 MIN TYRELL DELAROSA Jr., MD Dec 01, 2024 13:17
[2024-12-01] MEDS: metroNIDAZOLE 500MG/100ML 100 ML IV ONE (13:56)
[2024-12-01] MEDS ORDERED: VANCOMYCIN 1.25GM/250ML 250 ML IV SCH (14:00)
[2024-12-01] MEDS ORDERED: PIPERACILLIN-TAZO 4.5GM 100 ML IV SCH (16:00)
[2024-12-01 17:00] VITALS: BP 152/90; PULSE 50; RESP 16; TEMP 98.7; O2SAT 100
[2024-12-01 18:21] VITALS: BP 142/73; PULSE 46; RESP 16; TEMP 98.8; O2SAT 95
--- NOTE | 2024-12-01 18:45 | DVHPNRES ---
Progress Note Date Seen: Dec 01, 2024 Resident Creating Document: MIKE BUTLER JESSICA Has the PT tested + for MRSA If YES, has PT been informed?: No Medical Necessity Reason Pt with a Central, PICC or Fol: No Subjective Review of Systems 34-year-old male with a past medical history of cholecystectomy and multiple admissions to the ER with a drug overdose presented to the ED with a chief complaint of intractable nausea/vomiting and abdominal pain. Patient reported history of sudden onset intractable nausea and multiple episodes of vomiting without any blood which started yesterday afternoon/evening according to the patient. Patient has a history of cholecystectomy done laparoscopically few years ago. At the time of examination patient was lethargic and drowsy and could not give a good history. Recently drug use yesterday. He is homeless Past medical/surgical history: Cholecystectomy Social history: Patient is homeless and has been to the ER multiple times for drug overdose, currently denied any drug use, alcohol or smoking No home medications Patient seen and examined at the bedside. Due to altered mental status the patient could not provide proper history, but still patient is complaining of abdominal pain, nausea and vomiting. Patient reports: No new complaints Changes from previous H/P or p: Changes Objective vital signs Vital Sign Date Time Temp Pulse Resp B/P (MAP) Pulse Ox O2 Delivery O2 Flow Rate FiO2 12/01/24 18:21 16 95 Room Air* 0 21 12/01/24 18:21 98.8 46 142/73 (96) 98.8 medications Current Medications Medications Dose Ordered Sig/Nicho Route Start Time Stop Time Status Last Admin Dose Admin Pantoprazole Sodium 40 mg DAILY IV 12/02/24 10:00 Ondansetron HCl 4 mg Q6HPRN PRN IV 12/01/24 04:15 12/01/24 06:09 4 MG Ketorolac Tromethamine 15 mg Q6HPRN PRN IV 12/01/24 04:15 12/06/24 04:14 Metronidazole 100 ml @ 100 mls/hr Q8HR IV 12/01/24 22:00 Ceftriaxone Sodium 50 ml @ 100 mls/hr DAILY@09 IV 12/02/24 09:00 Mupirocin 1 applic BID TOP 12/01/24 22:00 Examination General Appearance: Alert, Oriented X3, Cooperative, drowsy and sleepy HEENT: Atraumatic, PERRLA, EOMI, Mucous membrane moist/pink Respiratory: Clear to auscultation, Normal air movement Cardiovascular: Regular rate, Normal S1, Normal S2, No murmurs, no chest wall tenderness Abdominal: Mild abdominal tenderness Extremities: No clubbing, No cyanosis, No edema, Normal pulses, No tenderness/swelling Skin: No rashes, No breakdown, No significant lesion Neuro: Normal gait, Normal speech, Strength at 5/5 X4 ext, Normal tone, Sensation intact, Cranial nerves 3-12 NL, Reflexes 2+ Psych/Mental Status: Mental status NL, Mood NL laboratory and microbiology Laboratory Tests 12/01/24 01:41 Test 12/01/24 01:41 Range/Units Serum Glucose 88 74-106 mg/dL Labs and/or images reviewed: Labs reviewed by me, Image(s) reviewed by me Problem List/Assessment/Plan Problem List/Assessment/Plan Acute toxic encephalopathy, likely due to fentanyl/amphetamine/cannabinoid use disorder Acute intractable abdominal pain , likely due to bowel obstruction Small-bowel Bowel obstruction Acute intractable nausea and vomiting S/p cholecystectomy few years ago Chronic periumbilical Abdominal wound Possible sepsis due to the wound/bowel obstruction Polysubstance drug abuse disorder * CT scan shows, moderate to high-grade bowel obstruction with air-fluid levels and dilated small bowel as well as retained stool throughout the proximal colon Plan/recommendation: * Empiric antibiotic Rocephin and Flagyl, IV fluid * Consulted surgery, recommended conservative management at the moment * Pain management, ketorolac * Protonix/ondansetron DIET: NPO/put NG tube DVT PROPHYLAXIS: Lovenox GI PROPHYLAXIS:: Protonix CODE STATUS: Goal of care discussed for more than 18 minutes, full code DISPOSITION: Telemetry Patient's status and plan discussed with the patient. Case discussed with Dr. Sanches. Plan discussed with: Patient, Other (RN) My Orders My Orders Orders - MIKE BUTLER Procedure Category Date Status Time * Pier Master Assistant CONS 12/01/24 Transmitted Consult * Surgical Consult CONS 12/01/24 Transmitted 08:40 * Wound Consult CONS 12/01/24 Transmitted Brooke Catheters ED NURSING 12/01/24 Transmitted Metronidazole PHA 12/01/24 In Process 500mg/100ml (Flagyl 22:00 Ceftriaxone 1gm/50ml PHA 12/02/24 In Process D5w (Rocephin) 09:00 Mupirocin 2% Ointment PHA 12/01/24 In Process (Bactroban 2% Oint 22:00 Basic Metabolic Panel LAB 12/02/24 Verified 04:00 Complete Blood Count LAB 12/02/24 Verified 04:00 Date of Service: Dec 01, 2024 Billing Provider: MELVINA SANCHES MD Common Visit Codes: [id number] INP/OBS CARE(HIGH) MIKE BUTLER RESDIENT Dec 01, 2024 18:45 MELVINA SANCHES MD Dec 08, 2024 21:23
[2024-12-01 20:00] VITALS: PULSE 59; RESP 19; O2SAT 99
[2024-12-01 21:00] VITALS: BP 131/80; PULSE 59; RESP 19; TEMP 98.8; O2SAT 99
[2024-12-01] MEDS: MUPIROCIN 2% OINT 15gm or 22gm TOP SCH (22:00)
[2024-12-01] MEDS: metroNIDAZOLE 500MG/100ML 100 ML IV SCH (22:33)
[2024-12-02 01:00] VITALS: BP 134/77; PULSE 46; RESP 18; TEMP 97.7; O2SAT 98
[2024-12-02 05:00] VITALS: BP 139/86; PULSE 61; RESP 18; TEMP 97.4; O2SAT 99
[2024-12-02 06:20] LABS: Chloride 106 mmol/L (98-107); Potassium 3.9 mmol/L (3.5-5.1); Sodium 144 mmol/L (136-145)
[2024-12-02 06:21] LABS: Anion Gap 9 (5-15); Carbon Dioxide 29 mmol/L (20-31)
[2024-12-02 06:25] LABS: Calcium 10.1 mg/dL (8.7-10.4)
[2024-12-02 06:26] LABS: Blood Urea Nitrogen 10 mg/dL (9-23); Glucose 91 mg/dL (74-106)
[2024-12-02 06:27] LABS: Basophils # (auto) 0 10 ^3/uL (0-0.2); Basophils % (auto) 0.4 % (0.0-2.0); Eosinophils # (auto) 0.3 10 ^3/uL (0-0.8); Eosinophils % (auto) 3.6 % (0.0-7.0); Hemoglobin 16.2 g/dL (13.5-17.5); Lymphocytes # (auto) 1.7 10 ^3/uL (0.4-5.4); Lymphocytes % (auto) 20.1 % (10.0-50.0); Mean Corpuscular Hgb Conc. 34.6 g/dL (32.0-36.0); Mean Corpuscular Volume 86.6 fL (80.0-100.0); Monocytes # (auto) 0.9 10 ^3/uL (0-1.3); Monocytes % (auto) 10.9 % (0.0-12.0); Neutrophils # (auto) 5.5 10 ^3/uL (1.6-8.6); Nucleated Red Blood Cells % 0.1 %; Platelet Count (auto) 254 10^3/uL (140-450); Red Blood Cells 5.42 10^6/uL (4.5-5.90); White Blood Cell 8.4 10^3/uL (4.4-10.8)
[2024-12-02 09:00] VITALS: BP 159/97; PULSE 44; RESP 18; TEMP 97.8; O2SAT 99
[2024-12-02] MEDS: cefTRIAXone 1GM/50ML D5W 50 ML IV SCH (09:25)
[2024-12-02] MEDS: PANTOPRAZOLE 40 MG/10 ML VIAL INJ IV SCH (09:27)
--- NOTE | 2024-12-02 15:15 | DVHDSRES ---
Discharge Summary Date of Admission Resident Creating Document: MIKE BUTLER RESDIENT Dec 01, 2024 at 04:12 Date of Discharge: Dec 02, 2024 Admitting Diagnosis Intractable emesis Labs/Diagnostic Data: Laboratory Results Test 12/02/24 05:22 12/01/24 08:06 12/01/24 07:55 12/01/24 03:41 White Blood Count 8.4 10^3/uL (4.4-10.8) Red Blood Count 5.42 10^6/uL (4.5-5.90) Hemoglobin 16.2 g/dL (13.5-17.5) Hematocrit 47.0 % (41.0-53.0) Mean Corpuscular Volume 86.6 fL (80.0-100.0) Mean Corpuscular Hemoglobin 30.0 pg (28.0-32.0) Mean Corpuscular Hemoglobin Concent 34.6 g/dL (32.0-36.0) Red Cell Distribution Width 13.0 % (11.8-14.3) Platelet Count 254 10^3/uL (140-450) Mean Platelet Volume 8.0 fL (6.9-10.8) Neutrophils (%) (Auto) 65.0 % (37.0-80.0) Lymphocytes (%) (Auto) 20.1 % (10.0-50.0) Monocytes (%) (Auto) 10.9 % (0.0-12.0) Eosinophils (%) (Auto) 3.6 % (0.0-7.0) Basophils (%) (Auto) 0.4 % (0.0-2.0) Neutrophils # (Auto) 5.5 10 ^3/uL (1.6-8.6) Lymphocytes # (Auto) 1.7 10 ^3/uL (0.4-5.4) Monocytes # (Auto) 0.9 10 ^3/uL (0-1.3) Eosinophils # (Auto) 0.3 10 ^3/uL (0-0.8) Basophils # (Auto) 0 10 ^3/uL (0-0.2) Nucleated Red Blood Cells 0.1 % Sodium Level 144 mmol/L (136-145) Potassium Level 3.9 mmol/L (3.5-5.1) Chloride Level 106 mmol/L (98-107) Carbon Dioxide Level 29 mmol/L (20-31) Anion Gap 9 (5-15) Blood Urea Nitrogen 10 mg/dL (9-23) Creatinine 0.83 mg/dL (0.700-1.30) Glomerular Filtration Rate Calc 119 mL/min (>90) BUN/Creatinine Ratio 12.0 (10.0-20.0) Serum Glucose 91 mg/dL (74-106) Calcium Level 10.1 mg/dL (8.7-10.4) Urine Color Yellow (Yellow) Urine Clarity Clear (Clear) Urine pH 5.5 (5.0-9.0) Urine Specific [place] 1.029 (1.001-1.035) Urine Protein Trace (Negative) Urine Ketones Trace (Negative) Urine Blood Negative /uL (Negative) Urine Nitrite Negative (Negative) Urine Bilirubin Negative (Negative) Urine Urobilinogen Normal mg/dL (Negative) Urine Leukocyte Esterase Trace /uL (Negative) Urine RBC 3 /hpf (0 - 3) Urine Microscopic WBC 6 /HPF (0-3) Urine Squamous Epithelial Cells Few /hpf (<5) Urine Bacteria None seen /hpf (None Seen) Urine Mucus Few (None Seen) Urine Glucose Normal mg/dL (Normal) Urine Opiates Screen Neg (NEGATIVE) Urine Fentanyl Screen Pos (NEGATIVE) Urine Barbiturates Screen Neg (NEGATIVE) Urine Phencyclidine Screen Neg (NEGATIVE) Urine Amphetamines Screen Pos (NEGATIVE) Urine Benzodiazepines Screen Neg (NEGATIVE) Urine Cocaine Screen Neg (NEGATIVE) Urine Cannabinoids Screen Pos (NEGATIVE) Prothrombin Time 11.4 sec (9.3-11.8) Prothrombin Time INR 1.08 (0.9-1.15) Activated Partial Thromboplast Time 28.7 SEC (24.5-34.5) Plasma/Serum Blood Alcohol < 3.0 mg/dL (<10) HIV (1&2) Antibody Negative (Negative) Lactic Acid Level 1.6 mmol/L (0.4-2.0) Test 12/01/24 01:41 Total Bilirubin 0.5 mg/dL (0.2-1.0) Aspartate Amino Transferase (AST) 35 U/L (<34) Alanine Aminotransferase (ALT) 29 U/L (7-40) Alkaline Phosphatase 81 U/L (46-116) Total Protein 8.3 g/dL (5.7-8.2) Albumin 5.1 g/dL (3.2-4.8) Lipase 49 U/L (12-53) Other Laboratory Tests 12/02/24 05:22 Brief Hx & Hospital Course: 34-year-old male with a past medical history of cholecystectomy and multiple admissions to the ER with a drug overdose presented to the ED with a chief complaint of intractable nausea/vomiting and abdominal pain. Patient reported history of sudden onset intractable nausea and multiple episodes of vomiting without any blood which started yesterday afternoon/evening according to the patient. Patient has a history of cholecystectomy done laparoscopically few years ago. At the time of examination patient was lethargic and drowsy and could not give a good history. Recently drug use yesterday. He is homeless Past medical/surgical history: Cholecystectomy Social history: Patient is homeless and has been to the ER multiple times for drug overdose, currently denied any drug use, alcohol or smoking No home medications Hospital course: Patient was admitted at the line of acute toxic encephalopathy, likely due to polysubstance drug abuse fentanyl/methamphetamine/cannabinoids and acute small- bowel obstruction. CT scan shows, moderate to high-grade bowel obstruction with air-fluid levels and dilated small bowel as well as retained stool throughout the proximal colon. The patient was kept NPO, started on empiric antibiotic of Rocephin, Flagyl, IV fluid and pain control. Surgery consulted, recommended conservative management. For intractable nausea and vomiting the patient was given Protonix and ondansetron. UDS showed positive for fentanyl, methamphetamine and cannabinoids. On 1st day, the patient was altered and could not provide proper history. On morning of 12/02/2024, the patient was feeling better since admission, patient was consulted regarding diagnosis and consulted for cessation of fentanyl, methamphetamine and cannabinoid. Later on patient requesting to leave AMA, patient did not give a reason why he wants to leave he just states that he wants to go. Risk of leaving AMA explained to the patient and the benefits of staying under a physicians care also explained to the patient, the patient verbalized understanding, signed AMA form and ambulated out of the facility. Left FA and Left AC IV access removed, pressure dressing applied and noted that cannula tips were intact. Brooke catheter also removed at the patients request, patient tolerated the procedure well. Condition at Discharge: Undetermined Final Diagnosis/Problems List Acute toxic encephalopathy, likely due to fentanyl/amphetamine/cannabinoid use disorder Acute intractable abdominal pain , likely due to small bowel obstruction Small-bowel Bowel obstruction Acute intractable nausea and vomiting S/p cholecystectomy few years ago Chronic periumbilical Abdominal wound Possible sepsis due to the wound/bowel obstruction Polysubstance drug abuse disorder Discharge Disposition: AMA Discharge Statement: "Patient was advised to return to the ER or call 911 if any headaches, dizziness, shortness of breath, chest pain, abdominal pain, bleeding, fevers, or worsening of medical condition. Patient was counseled about treatment plan, medications, possible side effects, patientverbalized understanding. All questions were answered to the best of my ability. This discharge took greater then 30 minutes in planning, reviewing documentation, counseling the patient, and discussing with other team members." ASSESSMENT ASSESSMENT Assessment Date of Service: Dec 02, 2024 Billing Provider: MELVINA SANCHES MD Common Visit Codes: 17933-MQB/OBS DISCH DAY >30min MIKE BUTLER RESDIENT Dec 02, 2024 15:15 MELVINA SANCHES MD Dec 08, 2024 21:34
== END 2024-12-02 12:35 | disposition left against medical advice (07) | DRG 247 ==
LOC: EDBD 23:55 → ER 23:55 → OVERFLOW 12-01 04:12 → WEST WING 12-01 15:52
PROVIDERS: ADMIT Student in an Organized Health Care Education/Training Program; ATTEND Student in an Organized Health Care Education/Training Program
DX: K56.609 Unspecified intestinal obstruction, unspecified as to partial versus complete obstruction (principal); G92.8 Other toxic encephalopathy; S31.105A Unspecified open wound of abdominal wall, periumbilic region without penetration into peritoneal cavity, initial encounter; T40.411A Poisoning by fentanyl or fentanyl analogs, accidental (unintentional), initial encounter; T40.711A Poisoning by cannabis, accidental (unintentional), initial encounter; Z90.49 Acquired absence of other specified parts of digestive tract; Z59.00 Homelessness unspecified; F19.10 Other psychoactive substance abuse, uncomplicated; Y92.89 Other specified places as the place of occurrence of the external cause; Z53.29 Procedure and treatment not carried out because of patient's decision for other reasons
CPT/HCPCS: 36415; 74176; 80048; 80053; 80307; 80320; 81001; 83605; 83690; 85025; 85610; 85730; 86703; 87040; 87077; 87186; 87205; G0378; J1885; J2405; J2470; J2543; J3490

== ENCOUNTER 2025-03-18 16:52 | Emergency (ER) | payer OTHER ==
[~2025-03-18] VITALS: Ht 182.9 cm; Wt 81.8 kg
--- NOTE | 2025-03-18 18:44 | ED.PDOC ---
History of Present Illness HPI Comments 34-year-old male JALIL with the chief complaint of overdose. EMS report that an off-duty shipping clerk and a county worker found the patient unconscious on the side of the road and tried giving him Narcan which he swatted away. Patient told EMS that he took faint 30 minutes ago and in the ER was given 1 mg of Narcan for which he became aggressive. Patient is currently in his feces at this time. Denies chills, fever, N/V/D, SOB, CP. No other associated symptoms, modifiers, recent injuries or sick contacts present at this time. Chief Complaint: General Weakness Time Seen by MD: 18:40 Reviewed Notes: Nurses Notes, Medications, Allergies Allergies: Coded Allergies: NO KNOWN ALLERGIES (Unverified , 05/20/12) Home Meds Active Scripts Ondansetron Odt 4MG Tab (ZOFRAN PO) 4 Mg Tb, 4 MG PO Q8HP PRN for 5 Days, #15 TAB ODT TAB-DISSOLVE IN MOUTH, THEN SWALLOW Prov:OMID MOSER MD 01/27/24 Information Source: Patient Mode of Arrival: EMS Severity: Moderate Timing: Minutes Duration: Since onset, Minutes Prehospital treatment: None Past Medical History PAST MEDICAL HISTORY: Unobtainable Surgical History: Unobtainable Family History Family History: Reviewed,noncontributory to illness, Unknown Social History Smoker: Unknown Alcohol: Unknown Drugs: Other ( fentanyl) Lives In: Unknown Constitutional: reports: others ( currently sleeping); denies: chills, diaphoresis, fatigue, fever, malaise, sweats, weakness EENTM: denies: blurred vision, double vision, ear bleeding, ear discharge, ear drainage, ear pain, ear ringing, eye pain, eye redness, hearing loss, mouth pain, mouth swelling, nasal discharge, nose bleeding, nose congestion, nose pain, photophobia, tearing, throat pain, throat swelling, voice changes, others Respiratory: denies: cough, hemoptysis, orthopnea, SOB at rest, shortness of breath, SOB with excertion, stridor, wheezing, others Cardiovascular: denies: chest pain, dizzy spells, diaphoresis, Dyspnea on exertion, edema, irregular heart beat, left arm pain, lightheadedness, palpitations, PND, syncope, others Gastrointestinal: denies: abdomen distended, abdominal pain, blood streaked bowels, constipated, diarrhea, dysphagia, difficulty swallowing, hematemesis, melena, nausea, poor appetite, poor fluid intake, rectal bleeding, rectal pain, vomiting, others Genitourinary: denies: burning, dysuria, flank pain, frequency, hematuria, incontinence, penile discharge, penile sore, pain, testicle pain, testicle swelling, urgency, others Neurological: denies: dizziness, fainting, headache, left sided numbness, left sided weakness, numbness, paresthesia, pre-existing deficit, right sided numbness, right sided weakness, seizure, speech problems, tingling, tremors, weakness, others Musculoskeletal: denies: back pain, gout, joint pain, joint swelling, muscle pain, muscle stiffness, neck pain, others Integumetry: denies: bruises, change in color, change in hair/nails, dryness, laceration, lesions, lumps, rash, wounds, others Allergic/Immunocompromised: denies: Difficulty Healing, Frequent Infections, Hives, Itching, others Hematologic/Lymphatic: denies: anemia, blood clots, easy bleeding, easy bruising, swollen glands, others Endocrine: denies: excessive hunger, excessive sweating, excessive thirst, excessive urination, flushing, intolerance to cold, intolerance to heat, unexplained weight gain, unexplained weight loss, others Psychiatric: denies: anxiety, bipolar disorder, depression, hopeless, panic disorder, schizophrenia, sleepless, suicidal, others All Other Systems: Reviewed and Negative Physical Exam Exam Comments Sleeping, alert to name, follows commands General Appearance: No Apparent Distress, Normal HEENT: Normal ENT Inspection, Pharynx Normal, TMs Normal Neck: Full Range of Motion, Non-Tender, Normal, Normal Inspection Respiratory: Chest Non-Tender, Lungs Clear, No Accessory Muscle Use, No Respiratory Distress, Normal Breath Sounds Cardiovascular: No Edema, No JVD, No Murmur, No Gallop, Normal Peripheral Pulses, Regular Rate/Rhythm Breast Exam: Deferred Gastrointestinal: No Organomegaly, Non Tender, No Pulsatile Mass, Normal Bowel Sounds, Soft Genitalia: Deferred Pelvic: Deferred Rectal: Deferred Extremities: No calf tenderness, Normal capillary refill, Normal inspection, Normal range of motion, Non-tender, No pedal edema Musculoskeletal : Apperance: Normal Neurologic: Alert, bone glue maker II-XII nml as Tested, No Motor Deficits, Normal Affect, Normal Mood, No Sensory Deficits Cerebellar Function: Normal Reflexes: Normal Skin: Dry, Normal Color, Warm Lymphatic: No Adenopathy Was a procedure done? Was a procedure done?: No Differential Dx Considerations may include: Fentanyl abuse, respiratory distress, overdose X-Ray, Labs, Meds, VS Vital Signs Date Time Temp Pulse Resp B/P (MAP) Pulse Ox O2 Delivery O2 Flow Rate FiO2 03/18/25 16:55 98.1 105 18 150/89 99 98.1 X-Ray, Labs, Meds, VS Comment Patient responds to name follows commands, patient shows no signs of respiratory distress, patient be discharged home. Time of 1ST Reevaluation: 19:10 Reevaluation 1ST: Unchanged Patient Education/Counseling: Diagnosis, Treatment, Prognosis, Need For Follow Up (Follow up with PCP next available appointment. Stop using drugs) Family Education/Counseling: No Family Present SEPSIS Sepsis Screen Date sepsis recognized/suspect: Mar 18, 2025 Time Sepsis recognized/suspect: 1654 Recent Procedure: No On Antibiotic Therapy: No Respiratory Rate >20: No Heart Rate >90: Yes Temp<36 C (96.8 F) or >38.3 C: No SBP <90 or MAP <65 mmHG: No New Acute Mental Status Change: No Is the patient on CPAP, BIPAP,: No Vital Signs Date Time Temp Pulse Resp B/P (MAP) Pulse Ox O2 Delivery O2 Flow Rate FiO2 03/18/25 16:55 98.1 105 18 150/89 99 98.1 Departure 1 Departure Time of Disposition: 22:51 Impression: Primary Impression: Opiate abuse, continuous Disposition: 01 HOME / SELF CARE / HOMELESS Condition: Fair Discharged With: Self Critical Care Note Critical Care Time?: No Stability Stability form required: No Heart Score Heart Score: Heart Score Response (Comments) Value History N/A 0 EKG N/A 0 Age N/A 0 Risk Factors N/A 0 Troponin N/A 0 Total 0 I personally scribed for DESIREE LUBIN ([email or web address]) on 03/18/25 at 18:44. Electronically submitted by Shant Mark ([email or web address]). DESIREE LUBIN Mar 18, 2025 18:44
[2025-03-19 03:00] VITALS: PULSE 68; RESP 20; O2SAT 100
[2025-03-19 06:07] VITALS: BP 128/85; PULSE 70; RESP 17; TEMP 98.3; O2SAT 100
== END 2025-03-19 06:18 | disposition home or self-care (01) ==
LOC: EDUNIT# 16:52 → ER 16:52 → EDBD 16:52 → ER 03-19 06:18
DX: F11.10 Opioid abuse, uncomplicated (principal); F17.200 Nicotine dependence, unspecified, uncomplicated